=== PATIENT | male | born 1965 | race Hispanic/Latino ===

== ENCOUNTER → 2018-05-24 | Outpatient (CLI) | payer OTHER | END | disposition home or self-care (01) | LOC: OIH 14:59 | PROVIDERS: ATTEND Internal Medicine | DX: M25.561 Pain in right knee (principal) | CPT/HCPCS: 73560 ==

== ENCOUNTER 2021-04-20 16:24 | Emergency (ER) | payer OTHER ==
[~2021-04-20] VITALS: Ht 180.3 cm; Wt 113.4 kg
[2021-04-20 16:25] VITALS: BP 121/76
[2021-04-20] MEDS ORDERED: METH-662 PO (17:27)
[2021-04-20] MEDS: KETOROLAC 60 MG VIAL (30MG/ML) IM ONE (17:57)
[2021-04-20] MEDS: FENTANYL 50 MCG/HR PATCH TD SCH (17:57)
== END 2021-04-20 18:11 | disposition home or self-care (01) ==
LOC: EDH 16:24
DX: M25.512 Pain in left shoulder (principal)
CPT/HCPCS: 93005; 96372; 99283; J1885